=== PATIENT | female | born 2000 | race Two or more races ===

== ENCOUNTER 2022-03-27 15:54 | Emergency (ER) | payer OTHER ==
[~2022-03-27] VITALS: Ht 152.4 cm; Wt 61.2 kg
[2022-03-27] MEDS ORDERED: OSEL75CA PO (17:34)
== END 2022-03-27 17:39 | disposition home or self-care (01) ==
LOC: ER 15:54 → EMR PED 15:56 → ER 15:56 → EMR PED 17:39
DX: J32.9 Chronic sinusitis, unspecified (principal); J10.1 Influenza due to other identified influenza virus with other respiratory manifestations; Z20.822 Contact with and (suspected) exposure to COVID-19; Z88.8 Allergy status to other drugs, medicaments and biological substances